=== PATIENT | male | born 2000 | race Caucasian/White ===

== ENCOUNTER 2024-02-21 14:26 | Emergency (ER) | payer BC ==
[2024-02-21] MEDS: HYDROmorphone 0.5 MG/0.5 ML SYRINGE IM STA (15:00)
[2024-02-21] MEDS: KETOROLAC 15 MG/ML 1 ML VIAL IM STA ×2 (15:05→15:49)
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
[2024-02-21] MEDS: HYDROmorphone 1 MG/ML 1 ML SYRINGE IM STA (15:49)
[2024-02-21 15:53] VITALS: RESP 18
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
[2024-02-21] MEDS: ACET/COD 300 MG/30 MG STARTER PACK 6 TAB BTL PO STA (16:41)
[2024-02-21 16:53] VITALS: BP 118/68; PULSE 90; TEMP 97.9
== END 2024-02-21 17:21 | disposition home or self-care (01) ==
LOC: EC 14:26
CPT/HCPCS: 70450; 72125; 72128; 96372; 99284

== ENCOUNTER → 2024-10-14 | Outpatient (CLI) | payer BC ==
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
== END | disposition home or self-care (01) ==
LOC: RADUSWWP 16:23
PROVIDERS: ATTEND Family Medicine
DX: R60.0 Localized edema (principal); M79.662 Pain in left lower leg